=== PATIENT | female | born 1935 | race Caucasian/White ===

== ENCOUNTER 2018-08-01 14:14 | Outpatient (CLI) | payer MEDICARE, OTHER ==
--- NOTE | 2018-08-01 16:26 | RAD ---
AIR CONTRAST BARIUM ENEMA: Date: 08/01/18 HISTORY: Incomplete colonoscopy. Screening. FINDINGS: Air contrast barium evaluation shows a very redundant sigmoid colon and redundant transverse colon. N o filling defects or annular constricting lesions. Base of the appendix is opacified. The terminal il eum did not opacify. IMPRESSION: Redundant colon. No masses or polyps are demonstrated. POS: [facility]
== END 2018-08-01 14:15 | disposition home or self-care (01) ==
LOC: RAD 14:14
PROVIDERS: ATTEND Internal Medicine Gastroenterology
DX: Z53.9 Procedure and treatment not carried out, unspecified reason (principal)
CPT/HCPCS: 74280

== ENCOUNTER 2023-03-21 11:03 | Outpatient (CLI) | payer MEDICARE, OTHER | END 2023-03-21 11:04 | disposition home or self-care (01) | LOC: BICMAMMO 11:03 | PROVIDERS: ATTEND Internal Medicine | DX: Z12.31 Encounter for screening mammogram for malignant neoplasm of breast (principal) | CPT/HCPCS: 77063; 77067 ==

== ENCOUNTER 2025-03-23 09:31 | Outpatient (CLI) | payer MEDICARE, OTHER | END 2025-03-23 09:32 | disposition home or self-care (01) | LOC: BICMAMMO 09:31 | PROVIDERS: ATTEND Internal Medicine | DX: Z12.31 Encounter for screening mammogram for malignant neoplasm of breast (principal) | CPT/HCPCS: 77063; 77067 ==